=== PATIENT | male | born 1985 | race Caucasian/White ===

== ENCOUNTER 2016-04-20 10:52 | Day surgery (SDC) | payer OTHER ==
[2016-04-15 17:42] VITALS: BMI 24.8
[2016-04-20] MEDS ORDERED: BUPIVACAINE HCL/PF 2.5 MG/ML - 30 ML VIAL IJ ONE (11:26)
[2016-04-20] MEDS ORDERED: LIDOCAINE 1%-EPI 1:100,000 30 ML MDV IJ ONE (11:26)
[2016-04-20] MEDS ORDERED: MIDAZOLAM HCL 2 MG/2 ML SINGLE DOSE VIAL ONE (11:43)
[2016-04-20] MEDS ORDERED: PROPOFOL 20 ML ONE ×2 (12:15)
[2016-04-20] MEDS ORDERED: ceFAZolin SODIUM 1 GM VIAL ONE (12:27)
[2016-04-20] MEDS ORDERED: DEXAMETHASONE SOD PHOSPHATE 4 MG/1 ML VIAL ONE (12:27)
[2016-04-20] MEDS ORDERED: ONDANSETRON 4 MG/2 ML VIAL ONE (12:27)
[2016-04-20 13:17] VITALS: TEMP 98
[2016-04-20 14:38] VITALS: BP 109/65; PULSE 62
--- NOTE | 2016-04-21 10:56 | OP ---
DATE OF OPERATION: 04/20/2016 This was done at [facility]. PREOPERATIVE DIAGNOSES: Plantar fibromatosis, tear of plantar fascia, and ganglion, all of the left foot. POSTOPERATIVE DIAGNOSES: Plantar fibromatosis, tear of plantar fascia, and ganglion, all of the left foot. SURGEON: Kirk Ricks DPM DESCRIPTION OF PROCEDURE: The patient was prepped and draped in the usual sterile manner, and under satisfactory local anesthesia with intravenous sedation, attention was directed to the plantar aspect of the left foot where an incision was made along the tension lines across an area where the palpable mass was present. The incision was carried down to the level of the mass; it was identified. It was noted to be a plantar fibroma. The mass was excised. There was noted tear in the plantar fascia, which was later repaired. However, at this point, underneath the fascia, a ganglion-like lesion was noted. It was excised in toto, and it was sent as a separate specimen from the plantar fibroma. Following this, the plantar fascia was sutured where it was torn. Following this, the wound was flushed with sterile saline. Subcutaneous closure was performed with 2-0 Vicryl and skin with horizontal mattress of 3-0 nylon. Steri-Strips were applied in order to support the wound. The patient was told to use crutches, nonweightbearing, and a dry sterile dressing, well padded, was applied. Patient was seen in the recovery room and followup phone call and patient was noted to be stable, and neurovascular status was noted to be intact. MAGDA CHAMBERS/[id number]
--- NOTE | 2016-04-22 13:22 | PATH ---
Surgical Pathology Report Patient Name: JONY WESTFALL [facility]. Rec. #: [id number] /Age/Gender: 1985 (Age: 31) / M Account: [id number] Location: [facility] Taken: 04/20/2016 Received: 04/20/2016 Reported: 04/22/2016 Physicians: Kirk Ricks M.D. Specimen(s) Received A: FIBROMA LEFT FOOT B: GANGLION LEFT FOOT Clinical History Fasciitis left foot Final Diagnosis A. SOFT TISSUE, FIBROMA LEFT FOOT, EXCISION: FIBROMATOSIS. B. SOFT TISSUE, GANGLION LEFT FOOT, EXCISION: BENIGN ADIPOSE TISSUE. Electronically Signed David Lawton M.D. Gross Description A. Received in formalin, labeled "fibroma left foot," is a 1.7 x 0.8 x 0.5 cm pradhan, irregular portion of fibrous tissue. The specimen is bisected and entirely submitted in one cassette. B. Received in formalin, labeled "ganglion left foot," is a 1.3 x 1.1 x 0.3 cm aggregate of pradhan-yellow soft tissue fragments. The specimen is entirely submitted in one cassette. /04/21/2016 saudi04/21/2016
== END 2016-04-20 13:50 | disposition home or self-care (01) ==
LOC: FASU 10:52
PROVIDERS: ATTEND Podiatrist Foot Surgery
PROC: 0JBR0ZX Excision of Left Foot Subcutaneous Tissue and Fascia, Open Approach, Diagnostic (ICD-10-PCS; 2016-04-20)
PROC: 0JBR0ZZ Excision of Left Foot Subcutaneous Tissue and Fascia, Open Approach (ICD-10-PCS; principal; 2016-04-20 12:00)
DX: M72.2 Plantar fascial fibromatosis (principal); D23.72 Other benign neoplasm of skin of left lower limb, including hip
CPT/HCPCS: 88304-TC